=== PATIENT | male | born 1965 | race Caucasian/White ===

== ENCOUNTER 2019-04-11 13:16 | Emergency (ER) | payer SELFPAY ==
[~2019-04-11] VITALS: Ht 182.9 cm; Wt 113.4 kg
--- NOTE | 2019-04-11 16:14 | Diagnostic Imaging Report ---
Exam: Left Knee Series. History: Left knee pain for one week, no history of fall or trauma Comparison: None. Findings: 3 views of the left knee. There is normal bone mineralization. Negative for acute, displaced fracture or dislocation. Relatively well-corticated 9 mm bony fragment projecting in the anterior aspect of the medial femorotibial joint space, likely representing a loose body. Mild patellar osteophytosis. No effusions or soft tissue swelling. Impression: 1. No acute abnormalities. 2. 9 mm bony fragment projecting in the anterior aspect of the medial femorotibial joint space, likely representing a loose body. Mild patellar osteophytosis. Signed by: Dr. Dusty Valero M.D. on 04/11/2019 4:10 PM
--- OUTSIDE RECORDS SUMMARY | 2019-04-21 10:38 | XMS REPORT ---
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 Allergies, Adverse Reactions, Alerts This patient has no known allergies or adverse reactions. Medications This patient has no known medications. Results Test Description Test Time Test Comments Text Results Atomic Results Result Comments KNEE 3VW LT - HOPD 2019-04-11 16:08:00 [place] [id number] Patient Name: WES VALLE MR #: [id number] : 1965 Age/Sex: 53/M Req #: [id number] [facility] Physician: Ordered by: KENDY ANTHONY MD Report #: [id number] Location: [facility] Room/Bed: Procedure: [id number] HOPD/KNEE 3VW LT - HOPD Exam Date: 04/11/19 Exam Time: 1344 REPORT STATUS: Signed Exam: Left Knee Series. History: Left knee pain for one week, no history of fall or trauma Comparison: None. Findings: 3 views of the left knee. There is normal bone mineralization. Negative for acute, displaced fracture or dislocation. Relatively well- corticated 9 mm bony fragment projecting in the anterior aspect of the medial femorotibial joint space, likely representing a loose body. Mild patellar osteophytosis. No effusions or soft tissue swelling. Impression: 1. No acute abnormalities. 2. 9 mm bony fragment projecting in the anterior aspect of the medial femorotibial joint space, likely representing a loose body. Mild patellar osteophytosis. Signed by: Dr. Zabrina Putnam M.D. on 04/11/2019 4:10 PM Dictated By: ZABRINA PUTNAM MD 09 Transcribed By: SHAQUILLE on 04/11/191609 COPY TO: KENDY ANTHONY MD
== END 2019-04-11 14:41 | disposition home or self-care (01) ==
LOC: FSED 13:16
DX: M25.562 Pain in left knee (principal)
CPT/HCPCS: 99283

== ENCOUNTER 2020-04-30 11:00 | Emergency (ER) | payer SELFPAY ==
[~2020-04-30] VITALS: Ht 182.9 cm; Wt 120.9 kg
[2020-04-30] MEDS ORDERED: MOTRIN200 MG PO (12:33)
[2020-04-30 12:47] VITALS: BP 151/93
== END 2020-04-30 12:45 | disposition home or self-care (01) ==
LOC: FSED 11:15
DX: G56.02 Carpal tunnel syndrome, left upper limb (principal); Z91.041 Radiographic dye allergy status
CPT/HCPCS: 99283

== ENCOUNTER 2022-02-10 10:51 | Emergency (ER) | payer SELFPAY ==
[~2022-02-10] VITALS: Ht 182.9 cm; Wt 121.1 kg
[~2022-02-10 10:51] MED LIST: MOTRIN200 MG PO
[2022-02-10] MEDS ORDERED: DEXAMETHASONE SOD PHOS 10 MG/1 ML VIAL IV ONE (13:15)
[2022-02-10] MEDS ORDERED: DEXAMETHASONE SOD PHOS INJ 4 MG/ML SDV ONE (13:38)
[2022-02-10] MEDS ORDERED: SODIUM CHLORIDE 0.9% 250ML 250 ML ONE (13:39)
[2022-02-10] MEDS ORDERED: FAMOTIDINE 20 MG/2 ML VIAL IV STA (13:48)
[2022-02-10] MEDS ORDERED: DOXYCYCLINE HY100 MG PO (13:52)
[2022-02-10] MEDS ORDERED: PREDNISONE20 MG PO (13:53)
[2022-02-10] MEDS ORDERED: DIPHENHYDRAMINE HCL INJ 50 MG/ML VIAL IV ONE (14:00)
[2022-02-10] MEDS ORDERED: FAMOTIDINE 20 MG/2 ML VIAL IV ONE (14:39)
[2022-02-10] MEDS ORDERED: DIPHENHYDRAMINE HCL INJ 50 MG/ML VIAL ONE (14:39)
[2022-02-10 15:30] VITALS: BP 154/95
== END 2022-02-10 16:28 | disposition home or self-care (01) ==
LOC: FSED 11:09
DX: L23.7 Allergic contact dermatitis due to plants, except food (principal); L03.114 Cellulitis of left upper limb; L03.113 Cellulitis of right upper limb; F17.210 Nicotine dependence, cigarettes, uncomplicated
CPT/HCPCS: 96374; 96376; 99283; J0690; J1100; J1200; J7050

== ENCOUNTER 2024-09-04 13:57 | Emergency (ER) | payer SELFPAY ==
[~2024-09-04] VITALS: Ht 182.9 cm; Wt 116.8 kg
[~2024-09-04 13:57] MED LIST changes: +DOXYCYCLINE HY100 MG PO; +PREDNISONE20 MG PO
[2024-09-04 14:10] VITALS: PULSE 73; RESP 20; TEMP 98; O2SAT 95
[2024-09-04] MEDS ORDERED: PREDNISONE20 MG PO (14:32)
[2024-09-04] MEDS ORDERED: TRIAMCINOLONE A15 G1 TOP (14:53)
[2024-09-04] MEDS ORDERED: PREDNISONE 20 MG TAB ONE (14:54)
[2024-09-04] MEDS: PREDNISONE 20 MG TAB PO SCH (14:55)
== END 2024-09-04 15:00 | disposition home or self-care (01) ==
LOC: FSED 14:20
DX: L23.7 Allergic contact dermatitis due to plants, except food (principal)
CPT/HCPCS: 99284; J7512